=== PATIENT | female | born 1955 | race Caucasian/White ===

== ENCOUNTER → 2017-03-06 | Outpatient (CLI) | payer OTHER ==
[~2017-03-06] MED LIST: NOMEDS *
[2017-03-06 13:46] LABS: HEMOGLOBIN 15.6 g/dL (12.2-16.2); LYMPH # 2.6 K/mm3 (0.7-4.5); LYMPH % 30.6 % (10-50.0)
[2017-03-06 16:07] LABS: BUN 15 mg/dL (7-18); FREE THYROXIN INDEX 6.6 ug/dl (5.93-13.13)
[2017-03-06 16:14] LABS: GFR (ESTIMATED) 85 ML/MIN (59-)
== END ==
LOC: CARL-LAB 07:29
PROVIDERS: Nurse Practitioner Obstetrics & Gynecology
DX: N92.4 Excessive bleeding in the premenopausal period (principal); N95.0 Postmenopausal bleeding

== ENCOUNTER → 2017-03-25 | Outpatient (CLI) | payer OTHER ==
[~2017-03-25] MED LIST changes: +CARDIZEM CD240 MG PO; +DIGOX0.125 MG PO; +ELIQUIS5 MG PO; +FLOVENT HF0.22 MG/AC IH; +LEVOTHYROXINE0.05 MG PO; +XOPENEX HF0.045 MG/A IH
[2017-03-25 10:27] LABS: HEMOGLOBIN 15.9 g/dL (12.2-16.2); LYMPH # 2.7 K/mm3 (0.7-4.5); LYMPH % 25.6 % (10-50.0)
[2017-03-25 11:50] LABS: BUN 19 mg/dL (7-18)
[2017-03-25 11:52] LABS: GFR (ESTIMATED) 101 ML/MIN (59-)
== END ==
LOC: RT 09:56 → LAB 09:56
PROVIDERS: Nurse Practitioner Obstetrics & Gynecology
DX: N85.02 Endometrial intraepithelial neoplasia [EIN] (principal); N95.0 Postmenopausal bleeding; R10.2 Pelvic and perineal pain; Z01.818 Encounter for other preprocedural examination

== ENCOUNTER 2017-04-01 06:09 | Inpatient (IN) | payer OTHER ==
[~2017-04-01] VITALS: Ht 170.2 cm; Wt 121.6 kg
[2017-04-01] VITALS (43 sets, daily range): BP systolic 62–147; BP diastolic 31–77
[~2017-04-01 06:09] MED LIST changes: -CARDIZEM CD240 MG PO; -DIGOX0.125 MG PO; -ELIQUIS5 MG PO; -FLOVENT HF0.22 MG/AC IH; -LEVOTHYROXINE0.05 MG PO; -XOPENEX HF0.045 MG/A IH
--- NOTE | 2017-04-01 10:16 | Anesthesia Record ---
Anesthesia Record Part I Total IV fluids: 2400 EBL (ml): 300 Urine Output: 50 B/P: 158/77 % SaO2: 95 Pulse: 76 Resps: 16 Temp: 98.6 Patient is: Drowsy, Nasal O2, Stable Stable to PACU at: 1010 at 1016
--- NOTE | 2017-04-01 10:16 | Anesthesia Record ---
Anesthesia Record Part II Discharge time: 1040 Destination: Second Floor PACU nurse assessment review? Yes Patient is: Stable Anesthesia complications? No at 1016
--- NOTE | 2017-04-01 10:16 | Operative Note ---
Procedure/Operative Record Procedure Date of procedure: 04/01/17 Pre-Op Dx: Complex endometrial hyperplasia with atypia Post-Op Dx: Complex endometrial hyperplasia with atypia, extensive pelvic peritoneal adhesions Procedure performed: Laparoscopically assisted vaginal hysterectomy, RIGHT salpingo-oophorectomy, extensive lysis of pelvic and peritoneal adhesions. Surgeon: Dr. Benjamin Terry Registered Safety Engineer(s): Janice Nicholas Anesthesia: Brent Feeback EBL (ml): 300 Clinical note: She is a 61-year-old lady who had postmenopausal bleeding. An endometrial biopsy showed that she had complex endometrial hyperplasia with atypia. As result of that she was offered laparoscopic assisted vaginal hysterectomy and RIGHT salpingo-oophorectomy. We initially had scheduled her for a total abdominal hysterectomy butshe requested laparoscopic. The risks and benefits of surgery were discussed the patient prior to surgery. Operative findings: Upon entering the abdominal cavity she had extensive adhesions of the omentum to the anterior abdominal wall as well as omentum and bowel adherent to the uterus and deep pelvis. The sigmoid colon was adherent to the LEFT pelvic sidewall. She had a previous LEFT salpingo-oophorectomy and I suspect this is why she had so many adhesions. The RIGHT ovary and tube appeared normal although the RIGHT tube was completely adherent to the RIGHT pelvic sidewall. Operative note: She was taken to the operating room where general anesthesia was found be adequate. She was prepped and draped in the normal sterile fashion in the semi- lithotomy position. A weighted speculum was placed in the vagina and the anterior lip of the surgical grasped with a tenaculum. Dilated the cervix to approximately 4 mm and inserted a Jelly uterine manipulator into the uterine cavity. The balloon was insufflated. I changed gloves and then injected 10 mL of 0.5 percent ropivacaine around the umbilicus. I made a small incision within the umbilicus and inserted a Veress needle into the abdominal cavity. The abdominal cavity was then insufflated with carbon oxide gas to a pressure of 20 mmHg. I then inserted an 11 mm trocar under direct vision. There were extensive adhesions noted upon entering the abdominal cavity. I was able to inject through and through in the LEFT lower quadrant lateral to the inferior epigastric arteries. I then made a small skin incision and inserted an 11 mm trocar under direct vision. Using harmonic scalpel I was able to take some of the adhesions down enough to free up along the anterior abdominal wall so that I could put in a suprapubic port. I injected through and through the pubic hairline, made a small incision here and inserted a 5 mm trocar under direct vision. Using harmonic scalpel and graspers I was able to further take down adhesions. There were adhesions of omentum to the fundus of the uterus. There were adhesions of the sigmoid colon along the anterior abdominal wall and bladder flap. These were taken down with Harmonic scalpel. I took great care to avoid touching the bowel. It took me between half an hour and 45 minutes to take down all the adhesions in the anterior abdominal wall and deep pelvis. I then cut through the LEFT round ligament with Harmonic scalpel. I opened up the anterior aspect of the peritoneum and opened this up to the midline. I then took down the posterior aspect of the broad ligament to the level of the uterosacral ligament on the LEFT side. I skeletonized the uterine arteries and then applied hemoclips to the uterine arteries. Using Harmonic Scalpel adjacent to the cervix I cut through the uterine arteries on the LEFT side. I further freed up the bladder anteriorly. I then turned my attention to the RIGHT side. I took cut through the RIGHT round ligament with Harmonic scalpel. I opened up the anterior peritoneum to the midline joining up with the other side. Then cut through the uterine and ligament and tube with Harmonic scalpel. I then took down the posterior aspect of the broad ligament to the level of the uterosacral ligament on the RIGHT side. I skeletonized the uterine arteries on the RIGHT side and applied hemoclips across uterine arteries. I then took these down with Harmonic scalpel staying adjacent to the cervix. Using Harmonic Scalpel and both blunt and sharp dissection I took down the bladder anteriorly and freed up the bladder pillars bilaterally. The RIGHT was then grasped and using harmonic scalpel I was able to free up the ovary from the RIGHT pelvic sidewall. I took great care to avoid delving to deep into the pelvic sidewall and avoiding the ureter. After freeing up the ovary and tube on its infundibulopelvic ligament I then placed 2 Endoloops on the infundibula pelvic ligament. I then cut away the ovary and tube. I placed the ovary and tube in an Endo Catch bag that was placed through the LEFT lower quadrant port and then remove these through the LEFT lower quadrant port. After assuring hemostasis I then turned my attention to the vaginal portion the surgery. The patient was placed in the lithotomy position and a weighted speculum was placed in the vagina. The anterior and posterior lip of the cervix were grasped with Qureshi tenacula. I then injected approximately 20 cc of 1 percent Xylocaine with epinephrine circumferentially about the cervix. I then circumscribed the cervix with knife. I opened up into the posterior cul-de-sac using Alford scissors. A long weighted speculum was then placed through this defect. I then clamped cut suture-ligated and tagged the LEFT uterosacral ligament. This was followed by the LEFT cardinal ligament. I then clamped cut suture-ligated and tagged the RIGHT uterosacral ligament. This was followed by the RIGHT cardinal ligament. I then grasped the peritoneum and vaginal mucosa anteriorly and using sharp dissection dissected the bladder off from the anterior cervix. This completely freed up the uterus and it was removed through the vagina. A short weighted speculum placed in the vagina and the posterior vaginal mucosa was closed using running 2-0 Vicryl suture in a locked fashion. I then placed a Jean Baptiste suture using 0 PDS first through the posterior vagina and peritoneum, through the LEFT pararectal fascia and across the posterior peritoneum. I then passed tissue the RIGHT pararectal fascia and out through the peritoneum. This was LEFT to be tied at the end. I could not see the peritoneum anteriorly so elected to just close the vaginal mucosa using running 0 Vicryl suture in a locked fashion from LEFT to RIGHT from anterior to posterior. A Arroyo catheter was in place in the bladder. Clear urine was seen to flow. We then changed gloves and once again performed the laparoscopic portion of the surgery. After assuring hemostasis of then elected to place 4 pieces of Surgicel in the pelvis and along the peritoneum. The masses out of the abdomen and once again hemostasis was assured. The secondary trochars were then removed under direct vision. The sites were hemostatic. The primary trocar and camera removed together. No bowel seen to follow. The 11 mm trocar sites were closed deeply with 2-0 Vicryl suture. The 5 mm trocar site was closed with subcu care 4-0 Monocryl. The skin of the 11 mm trocar sites were closed with subcuticular running 4-0 Monocryl suture. The patient tolerated the procedure well and was taken to the recovery room in excellent condition. All sponge instrument and needle counts were correct. Estimate a blood loss was approximately 300 mL. Conplications: None Specimens: Uterus and RIGHT ovary and RIGHT tube. at 1016
--- NOTE | 2017-04-01 13:21 | PHARMACY CLINIC NOTE ---
Patient Demographics Patient Demographics Admission date: 04/01/17 Date: 04/01/17 Time: 1321 Allergies Coded Allergies: No Known Allergies (04/01/17) HEIGHT- FT: 5 IN: 7.00 K.482 VTE General Information Disclaimer The following section includes nursing documentation that has been pulled in for pharmacy review. Patient's VTE score: 3 Patient's VTE Risk: LOW RISK VTE prophylaxis NQF [id number] VTE prophylaxis ordered? Yes Type of prophylaxis/treatment: ICD, Lovenox at 1321
[2017-04-01 13:32] LABS: HEMOGLOBIN 12.2 g/dL (12.2-16.2)
--- NOTE | 2017-04-01 14:00 | ACUTE CARE PROGRESS NOTE (QUA) ---
Progress Notes Subjective Date 04/01/17 Time 1353 Note I was called to see the patient because she had a drop in her blood pressure. He was feeling unwell and her blood pressure was in the 60s over 40s. Her heart rate was 40. The nurses said that this came on all of a sudden. She had been doing very well post surgery. She had put out approximately 200 mL of urine since arriving on the floor. She is not actively bleeding. Patient/family reports: feeling better Objective Findings Last VS-Temp:97.9 B/P:126/76 Pulse:80 Resp:16 SaO2:96 Last weight lbs:259 oz:0 K.482 Method:Floor Scales Laboratory Tests 04/01/17 1328: POC Glucose 161 H 04/01/17 1320: Hgb 12.2, Hct 38.1 Exam General appearance: normal appearance, obese Eyes: normal exam Cardiovascular: normal exam, normal sinus rhythm Respiratory: aerating well ABD: normal exam, non-distended Skin: dry, cool, pale Reviewed: vital signs, lab results Assessment/Plan Patient condition Stable Plan: continue current care This inpt stay is expected to cross 2 MNs from start of care Yes Comments: Her hemoglobin is 12.2. It was 15.9 prior surgery. She has received fluids and she only lost about 300 -400 mL of blood during her surgery. She was somewhat oozy at the end of the surgery but was otherwise stable. Given the fact that her blood pressure was low and her heart rate was low I suspect she may have had a vagal reaction. She felt better upon receiving only 300 -400 mL of fluids. My concern was that she had active bleeding causing her low blood pressure. I would have suspected that her heart rate would have been elevated with the low blood pressure but it was not. She recovered quite quickly. Her hemoglobin is 12.2 and I would've suspected that it would have been considerably lower if she had active bleeding. We have typed and crossed her for 4 units of blood. We will repeat her H and H again in an hour. She is stable at this point in time. Her cardiogram was normal. There is no evidence of ischemia. She had sinus bradycardia with a heart rate of 59. At this point in time I don't think I need to take her back to the operating room but I will leave this option open if she has any further episodes of low blood pressure, decreased urine output or low blood counts. at 1400
[2017-04-01 14:42] LABS: HEMOGLOBIN 10.6 g/dL (12.2-16.2)
[2017-04-01 15:35] LABS: ABO BLOOD TYPE O; RH BLOOD TYPE POSITIVE
[2017-04-01 15:36] LABS: ANTIHUMAN GLOB CROSSMATCH COMPAT
[2017-04-01 15:37] LABS: ANTIHUMAN GLOB CROSSMATCH COMPAT
[2017-04-01 15:39] LABS: URINE BILIRUBIN - DIPSTICK NEGATIVE (NEG); URINE BLOOD 2+ (NEG)
--- NOTE | 2017-04-01 16:49 | Operative Note ---
Procedure/Operative Record Procedure Date of procedure: 04/01/17 Pre-Op Dx: Postoperative bleeding Post-Op Dx: Postoperative bleeding Procedure performed: Support her laparotomy with clips to the uterine artery on the LEFT side. Surgeon: Dr. Benjamin Terry Certified Scrum Master(s): Dr. Davis Anesthesia: Brent Gomez EBL (ml): 800 Clinical note: She is a 61-year-old lady who underwent a laparoscopic-assisted vaginal hysterectomy on the morning of April 01, 2017. She was doing very well postoperatively and then dropped her blood pressure. She received a minimal amount of IV fluids and the blood pressure recovered. However she dropped her blood pressures second time after fluid resuscitation and as result of that we elected to perform an exploratory laparotomy. Her hemoglobin was 12.2 postoperatively and an hour later was 10.6. Operative findings: On opening the abdominal cavity she had approximately 500 -600 mL of clots in the pelvis. We rinsed the pelvis well and on the left-hand side it was noted that there was a small amount of bleeding from the LEFT uterine artery. There were clips on the LEFT artery but the bleeding was more medial to the clips. It was just oozing. I was able to apply 2 clips to the medial end of the uterine artery and this completely stopped the bleeding. She lost approximately 200 mL of blood during the surgery itself. Operative note: She was taken to the operating room where general anesthesia was found be adequate. She was prepped and draped in normal sterile fashion in the supine position. A Arroyo catheter was in the bladder. A midline incision was made with knife and carried through to the underlying layer of fascia with cautery. The fascia was opened in the midline with cautery and extended superiorly and inferiorly with cautery. The rectus muscles were then in the midline and the peritoneum identified. It was tented up and entered sharply with Metzenbaum scissors. We then further opened this peritoneum superiorly and inferiorly with good visualization of the bladder inferiorly and the bowel underneath. We cleared all the clots and debris from the pelvis and then packed away the bowel with warm moist packs. A Bookwalter was used to provide traction. We then rinsed the pelvis well with warm saline and we identified a small bleeder on the LEFT side that was oozing from the LEFT uterine artery proximal to the clips that were on the distal end of the uterine artery. We once again rinsed the pelvis well and assure hemostasis. I then placed 3 large pieces of Gelfoam in the pelvis as well as 2 pieces of Surgicel. Once again hemostasis was assured. The Surgicel and Gelfoam were both dry. We then removed the Bookwalter retractor and close the peritoneum using running 2-0 Vicryl suture. The fascia was then closed using running #2 Novafil suture. The subcu sutures then irrigated with warm water and closed in 2 layers with running 2-0 Monocryl suture. The inferior and superior aspect of the incision were closed with mattress style 4-0 nylon suture. The skin was then closed with mariana. I then cleaned the skin with Hibiclens. Sterile dressings were applied. The patient tolerated the procedure well and was taken to the recovery room in excellent condition. All sponge instrument and needle counts were correct. Estimate a blood loss was approximately 800 mL that included the blood that was artery in the pelvis. Conplications: None Specimens: None at 3161
--- NOTE | 2017-04-01 17:02 | Anesthesia Record ---
Anesthesia Record Part II Discharge time: 1725 Destination: Second Floor PACU nurse assessment review? Yes Patient is: Stable Anesthesia complications? No at 1701
--- NOTE | 2017-04-01 17:02 | Anesthesia Record ---
Anesthesia Record Part I Total IV fluids: 2500 EBL (ml): 800 Urine Output: 500 Units of blood given: 2 Type of product: Packed RBCs B/P: 150/83 % SaO2: 97 Pulse: 82 Resps: 16 Temp: 97.8 Patient is: Drowsy, Nasal O2, Stable Stable to PACU at: 1655 at 1701
[2017-04-01 17:34] LABS: HEMOGLOBIN 12.5 g/dL (12.2-16.2)
[2017-04-02] VITALS (14 sets, daily range): BP systolic 105–143; BP diastolic 54–80
[2017-04-02 07:35] LABS: HEMOGLOBIN 11.1 g/dL (12.2-16.2)
[2017-04-02 07:36] LABS: LYMPH # 2.2 K/mm3 (0.7-4.5); LYMPH % 18.8 % (10-50.0)
--- NOTE | 2017-04-02 10:06 | ACUTE CARE PROGRESS NOTE (QUA) ---
Progress Notes Subjective Date 04/02/17 Time 1002 Note She is doing very well this morning. Her pain is well-controlled. She does complain of some mild shortness of breath. I suspect this is as a result of the amount of fluid she received yesterday. She is voiding well. She denies any chest pain or calf tenderness. Her belly pain is minimal. She is passing gas. She is eating. Patient/family reports: feeling better Objective Findings Last VS-Temp:98.8 B/P:115/65 Pulse:86 Resp:18 SaO2:95 OXYGEN Last weight lbs:259 oz:0 K.482 Method:Floor Scales Laboratory Tests 04/02/17 0625: Sodium 138, Potassium 4.4, Chloride 105, Carbon Dioxide 28, BUN 15, Creatinine 0.8, Estimated Creat Clear 133, Estimated GFR (MDRD) 72, Glucose 144 H, Calcium 7.3 L, WBC 11.6 H, RBC 3.72 L, Hgb 11.1 L, Hct 34.3 L, MCV 92.2, RDW 16.4, Plt Count 184, Gran % 76.0, Gran # 8.8 H, Lymphocytes % 18.8, Monocytes % 5.2, Lymphocytes # 2.2, Monocytes # 0.6, PUBS MCHC 32.4, MCH 29.8 04/01/17 1725: Hgb 12.5, Hct 40.7 04/01/17 1555: Misc Test Units BLOOD UNIT RELEASE 04/01/17 1534: Misc Test Units BLOOD UNIT RELEASE 04/01/17 1427: Hgb 10.6 L, Hct 33.4 L 04/01/17 1342: Antibody Screen NEGATIVE, Miscellaneous Test POSITIVE 04/01/17 1328: POC Glucose 161 H 04/01/17 1320: Hgb 12.2, Hct 38.1 Exam General appearance: normal appearance, alert, awake, no acute distress Eyes: normal exam ENT: normal exam Neck: normal inspection Cardiovascular: normal exam, normal sinus rhythm, regular rate & rhythm Respiratory: normal exam, aerating well, clear to auscultation, good air movement ABD: 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 Complex endometrial hyperplasia with atypia 2. Postoperative hemorrhage involving genitourinary system following non- genitourinary procedure Patient condition Improving, Stable Plan: continue current care This inpt stay is expected to cross 2 MNs from start of care Yes Comments: She is doing very well this morning. She is eating and drinking. She does complain of some mild shortness of breath that I suspect is as result of her excess fluid that she received prior to surgery and during surgery. She is making a normal amount of urine. I suspect that this will continue and she will feel much better after she diuresis. I will give her 20 mg IV of Lasix this morning. at 1008
[2017-04-03] VITALS (21 sets, daily range): BP systolic 102–160; BP diastolic 50–78
[2017-04-03 05:38] LABS: HEMOGLOBIN 10.6 g/dL (12.2-16.2)
--- NOTE | 2017-04-03 07:05 | ACUTE CARE PROGRESS NOTE (QUA) ---
Progress Notes Subjective Date 04/03/17 Time 0621 Note pt with inc hr with funny feeling in chest - she recently had surg and transfusion but no active bleeding now - she reports she has had these palpatations in past but no known workup - pt with initial ekg which showed a fib with non- specific st elevation 3 and f - pt seen and feeling better with no chest pain and repeat ekg showed a fib with rvr and no sig elevation- Patient/family reports: feeling better Nursing reports: shortness of breath Objective Findings Last VS-Temp:98.5 B/P:123/58 Pulse:95 Resp:19 SaO2:994 ROOM AIR Last weight lbs:259 oz:0 K.482 Method:Floor Scales Exam General appearance: alert, awake Eyes: PERRLA ENT: dry mucous membranes Neck: no JVD Cardiovascular: irregularly irregular, murmur Respiratory: clear to auscultation, no respiratory distress ABD: soft Genitourinary: no hematuria Extremities: moves all, no calf tenderness Musculoskeletal: equal muscle strength Skin: dry Neuro: alert, photo optics technician II-XII nml as tested Reviewed: allergies, medications, vital signs, lab results, EKG personally reviewed Assessment/Plan Problem List 1. Complex endometrial hyperplasia with atypia 2. Postoperative hemorrhage involving genitourinary system following non- genitourinary procedure 3. Atrial fibrillation with rapid ventricular response Patient condition Stable Plan: order additional tests This inpt stay is expected to cross 2 MNs from start of care Yes Comments: pt is stable and will have ct for pul emboli as her wells score is elevated and will give theurapeutic dose of lovenox at this time and start cardizem and place on monitor -tele - dr cadena and dr arredondo notified and dr traore notified at 0704
--- NOTE | 2017-04-03 08:16 | ACUTE CARE PROGRESS NOTE (QUA) ---
Progress Notes Subjective Date 04/03/17 Time 0812 Note She was doing well overnight. She says that she took some of her inhaler this morning and when she stood up she started feeling really short of breath and dizzy. She had an electrocardiogram that was suggestive of pulmonary embolus. She had a CT of the chest was negative for pulmonary embolus. It was felt however that she did have atrial fibrillation. She's been started on a Cardizem drip and has been seen in consultation by Dr. Cuevas. She was also seen by Dr. Turpin. We have a consult and for Dr. Olivares as well. Laboratory Tests 04/03/17 0729: Creatine Kinase 601 H, CK-MB (CK-2) Rel Index 0.2, CK and CKMB Interp 1.2, Troponin I 0.02 04/03/17 0630: TSH 1.24, Thyroxine (T4) 10.1 04/03/17 0530: Creatine Kinase 559 H, CK-MB (CK-2) Rel Index 0.2, CK and CKMB Interp 1.2, Troponin I < 0.02 04/03/17 0530: Sodium 139, Potassium 3.6, Chloride 107, Carbon Dioxide 28, BUN 9, Creatinine 0.6, Estimated Creat Clear 178, Estimated GFR (MDRD) 101, Glucose 129 H, Calcium 7.7 L, Total Bilirubin 0.5, AST 33, ALT 47, Alkaline Phosphatase 43 L, Total Protein 6.1 L, Albumin 2.6 L, Globulin 3.5 H, Albumin/Globulin Ratio 0.7 L, D-Dimer 2640 *H, Hgb 10.6 L, Hct 32.9 L Patient/family reports: feeling better Objective Findings Last VS-Temp:98.5 B/P:123/58 Pulse:95 Resp:19 SaO2:994 ROOM AIR Last weight lbs:259 oz:0 K.482 Method:Floor Scales Exam General appearance: normal appearance, alert, awake, no acute distress Eyes: normal exam ENT: mucous membranes moist Neck: normal inspection Cardiovascular: normal exam, tachycardia Respiratory: normal exam, aerating well, clear to auscultation, good air movement, normal breath sounds ABD: normal exam, non-distended, normal bowel sounds (INCISION CLEAN AND DRY) Genitourinary: normal voiding & quantity Extremities: normal exam, no pedal edema Musculoskeletal: normal exam Skin: normal exam, normal color Assessment/Plan Problem List 1. Complex endometrial hyperplasia with atypia 2. Postoperative hemorrhage involving genitourinary system following non- genitourinary procedure 3. Atrial fibrillation with rapid ventricular response Patient condition Stable Plan: continue current care, consult information and data architect analyst This inpt stay is expected to cross 2 MNs from start of care Yes Comments: She seems to be doing better. We will start her on the diltiazem as per Dr. Cuevas's orders. We will have her see Dr. Olivares this morning. She would like to have a Dulcolax suppository to make her bowels moved. She is otherwise doing well. at 0816
--- NOTE | 2017-04-03 09:40 | RADIOLOGY REPORT PS360 ---
CTA-CHEST HISTORY: Shortness of air, recent surgery SOA ORDERING PHYSICIAN: Benjamin Terry MD PATIENT AGE: 61 years TECHNIQUE: Helical acquisition obtained following the bolus administration of 60 mL of Isovue 370 followed by a saline bolus. Axial, sagittal, and coronal reformatted images are generated and reviewed. COMPARISON: None FINDINGS: There is no evidence of central pulmonary embolus. The peripheral pulmonary arteries are not well opacified. Normal heart size. No evidence of aortic aneurysm. No mediastinal or hilar mass. There is moderate bilateral lower lobe consolidation/volume loss with patchy peripheral areas of atelectasis in the left upper lobe and left lower lobe. There are small bilateral pleural effusions. Upper abdominal images show cholelithiasis. There is a pneumoperitoneum likely related to recent abdominal surgery. There is a 4 cm lobular opacity medial to the inferior aspect of the right lobe of liver. This is of questionable clinical significance and etiology and may be better evaluated with dedicated CT abdomen without contrast.. Small amount fluid is present in the right paracolic gutter. IMPRESSION: 1. No evidence of acute pulmonary embolus or aortic aneurysm. 2. Moderate lateral lower lobe consolidation/volume loss with scattered subsegmental atelectasis or infiltrate in the upper lobes and superior segment left lower lobe. Small bilateral effusions. 3. Unusual opacity medial to the inferior aspect of the right hepatic lobe. Possibly related to unopacified bowel, mass, or blood. Further evaluation may be obtained CT abdomen with IV and oral contrast if clinically warranted. 4. Pneumoperitoneum is present likely related to recent abdominal surgery 5. Cholelithiasis
--- NOTE | 2017-04-03 13:19 | RADIOLOGY REPORT PS360 ---
PROCEDURE: 2-D M-mode and color Doppler study INDICATIONS FOR THE TEST: Chest pain COPDX Heart Murmur Tobacco SmokingEX Palpitations Fatigue Syncope Edema Hypertension Diabetes Mellitus Rheumatic Fever SOB JONAS ObesityXHyperlipidemia Family History HD Additional History AF WITH RVR PATIENT INFORMATION HEIGHT: 67 WEIGHT:259 GENDER: Female B/P:123/58 2-D/M-MODE INTERPRETATION: 2-D MEASUREMENTS OBSERVED VALUES IN CMS Right Ventricular Dimension (RVDd) 1.5 Interventricular Septum (Thickness)(IVsd) 1.5 Left Ventricular Internal Dimensions(LVIDd) 4.3 Left Ventricular Posterior Wall (Thickness)(LVPWd) 1.0 Aortic Root 3.1 Aortic Cusp Separation 1.2 Left Atrial Dimensions (LAD) 3.3 2D 1. Left atrium is qualitatively mildly enlarged, left ventricle is normal size, there is mild concentric left ventricular hypertrophy, visually estimated ejection fraction of 55-60% with no obvious regional wall motion abnormality, endocardial surfaces are somewhat poorly visualized. 2. The right atrium is normal size, right ventricle is mildly enlarged with normal contractility. 3. The aortic valve is minimally thickened and calcified, leaflet continue to display mobility. 4. The mitral valve leaflets are minimally thickened and calcified. 5. The tricuspid valve is minimally thickened. 6. The pulmonic valve is poorly visualized. 7. No significant pericardial effusion noted. DOPPLER INTERROGATION: Doppler interrogation of the aortic mitral and tricuspid valvular presence of mild mitral and tricuspid regurgitation, tricuspid regurgitant jet velocity is insufficient for calculation of the right ventricular systolic pressure. CONCLUSION: 1. Technically difficult study because of the patient's factor and poor acoustic windows 2. Mildly enlarged left atrium, normal left ventricular size, mild qualitative concentric left ventricular hypertrophy, visually estimated ejection fraction 55-60% with no obvious regional wall motion abnormality, endocardial surfaces are poorly visualized. 3. Mildly enlarged right ventricle with normal contractility. 4. Thickened and calcified aortic valve without any significant aortic stenosis or aortic insufficiency. 5. Mild mitral and tricuspid regurgitation. 6. No significant pericardial effusion noted.
[2017-04-04] VITALS (14 sets, daily range): BP systolic 101–147; BP diastolic 54–80
--- NOTE | 2017-04-04 08:32 | CONSULT NOTE ---
See Addendum Standard Demographics Patient Demo Date of Consultation: 04/03/17 Referring Provider: Benjamin Terry MD Reason for Consultation: atrial fibrillation PRIMARY DIAGNOSIS: SAME-PELVIC PAIN Allergies: Coded Allergies: No Known Drug Allergies (-- 04/01/17) History of present illness: History of present illness: 61-year-old white female with long history of poorly controlled asthma who underwent total abdominal hysterectomy 4 days ago, complicated by return to the operating room because of bleeding. She had been doing well, but early the morning of the had rapid heart rate, some chest pressure and shortness of air. She reported that began the night before when she took a couple puffs of her Symbicort inhaler. Electrocardiogram showed rapid atrial fibrillation, some ST/T-wave segments, cross covering doctor ordered d-dimer and troponin levels, showing highly positive d-dimer levels and normal troponins. Patient was subjected to CT scan with PE protocol which is negative. We've transferred her to the floor and Cardizem drip has been started. Past medical history: Family HX Diabetes No CAD Yes Hypertension Yes Hyperlipidemia No Cancer No TB No Immunization HX DT/Tetanus Unknown Flu Refused Pneumonia Never Had TB Test in last year No General Angina: No SC: No Hypertension? No Hyperlipidemia? No CHF? No COPD? Yes Asthma? Yes Hernia? No CVA? No Seizures? No Diabetes? No UTI? No Stones? No GB Disease: No Hepatitis? No Cataracts? No Glaucoma? No MRSA? No TB? No Cancer? No Past Surgical HX Previous Surgery?Y FB REMOVAL FROM ESPOHAGUS L OVARY REMOVED RIGHT HIP REPLACE Jun Current home meds: Reported Medications No Known Home Medications Social Hx: Pt is a non-smoker Patient uses alcohol never Patien't marital status is single Patient's support system is excellent Pt uses illicit drugs? No Exam: Admission vital signs: 1ST Vital Signs Result Date Time B/P 128/72 04/01 0706 Temp 98.6 04/01 0706 Pulse 68 04/01 0706 Resp 18 04/01 0706 Pulse Ox 96 04/01 0709 O2 Delivery OXYGEN 04/01 1010 O2 Flow Rate 2 04/01 1100 Additional information: I examined her in the second floor intensive care unit around 8 AM. She had improved in regards to heart rate. Remained in atrial fibrillation. Her breathing was tight with minimal tachypnea. She was alert, oriented 3, normal blood pressure. Abdomen soft, surgical scar is tender, otherwise soft abdomen, no edema or clubbing. Plan: Problem List 1. Complex endometrial hyperplasia with atypia 2. Postoperative hemorrhage involving genitourinary system following non- genitourinary procedure 3. Atrial fibrillation with rapid ventricular response 4. Asthma Plan: Atrial fibrillation, probable paroxysmal. Patient shares with me that she's had palpitations in the past at home. Possibly exacerbated by beta agonist. We will change her breathing treatments to Xopenex, start Solu-Medrol and antibiotics. Cardizem drip was started controlled rate. We will continue and switch to by mouth Cardizem if sinus rhythm conversion occurs. Echocardiogram ordered. at 0832
--- NOTE | 2017-04-04 08:37 | ACUTE CARE PROGRESS NOTE (QUA) ---
See Addendum Progress Notes Subjective Date 04/04/17 Time 0833 Note Internal medicine consult follow-up note: Patient overall feels much better. No complaints. type copy examiner recorded one episode of atrial fibrillation last night but patient was unaware of this. Rate was much better controlled. Lung exam is much improved, better air entry. No expiratory wheezing. No stridor. Good air movement. Heart rate regular. Normal sinus rhythm on monitor this morning. No edema. Patient wants to go home. Objective Findings Last VS-Temp:98.3 B/P:127/73 Pulse:76 Resp:22 SaO2:91 ROOM AIR Last weight lbs:264 oz:1 K.777 Method:Bed Scales Assessment/Plan Problem List 1. Complex endometrial hyperplasia with atypia 2. Postoperative hemorrhage involving genitourinary system following non- genitourinary procedure 3. Atrial fibrillation with rapid ventricular response 4. Asthma Patient condition Improving Plan: continue current care, Dial back steroid dose. Continue Xopenex instead of standard beta agonist for bronchodilation given her atrial fibrillation. Slightly increased dose of Cardizem. Echocardiogram showed reassuring results vis--vis atrial size and function of ventricular system. Patient does need to be on long-term anticoagulation given the history of paroxysmal atrial fibrillation. When she is discharged she will need to be discharged on a 30 day event recorder. I will provide her with samples of Eliquis 5 mg twice a day from my office in preparation for discharge. This inpt stay is expected to cross 2 MNs from start of care Yes at 0837
--- NOTE | 2017-04-04 08:54 | ACUTE CARE PROGRESS NOTE (QUA) ---
Progress Notes Subjective Date 04/04/17 Time [address] Platt has been noted. Surgically the patient has done well. Her wounds are clean. Abdomen soft. She is passing flatus. She is been eating and ambulating. He feels that she needs to be observed for another 24 hours before discharge, and has been discussed with the patient. Hemoglobin is 10.6 g. Impression: Stable (from a surgical point of view). Assessment/Plan Problem List 1. Complex endometrial hyperplasia with atypia 2. Postoperative hemorrhage involving genitourinary system following non- genitourinary procedure 3. Atrial fibrillation with rapid ventricular response 4. Asthma This inpt stay is expected to cross 2 MNs from start of care Yes at 0886
[2017-04-04] MEDS ORDERED: LEVOTHYROXINE0.05 MG PO (11:27)
[2017-04-05] VITALS (15 sets, daily range): BP systolic 121–187; BP diastolic 62–96
--- NOTE | 2017-04-05 09:10 | ACUTE CARE PROGRESS NOTE (QUA) ---
Progress Notes Subjective Date 04/05/17 Time 0907 Note The patient is afebrile. Her vital signs are stable, except that she reverted to HO fibrillation within the past hour and is extremely anxious this morning. His concerned about her heart, about her final path report, and about her past gynecologic history. I've had a long discussion with her. She will not be discharged today and Dr. Platt will be in to see her later this morning. I've given her 5 mg of Valium by mouth an effort to relax her some until the time. Dr. Terry returns tomorrow. Assessment/Plan Problem List 1. Complex endometrial hyperplasia with atypia 2. Postoperative hemorrhage involving genitourinary system following non- genitourinary procedure 3. Atrial fibrillation with rapid ventricular response 4. Asthma This inpt stay is expected to cross 2 MNs from start of care Yes at 0909
[2017-04-06] VITALS (9 sets, daily range): BP systolic 129–186; BP diastolic 62–95
[2017-04-06] MEDS ORDERED: ELIQUIS5 MG PO (08:13)
[2017-04-06] MEDS ORDERED: DIGOX0.125 MG PO (08:13)
[2017-04-06] MEDS ORDERED: CARDIZEM CD240 MG PO (08:14)
[2017-04-06] MEDS ORDERED: XOPENEX HF0.045 MG/A IH (08:15)
[2017-04-06] MEDS ORDERED: FLOVENT HF0.22 MG/AC IH (08:23)
--- NOTE | 2017-04-06 08:23 | ACUTE CARE PROGRESS NOTE (QUA) ---
Progress Notes Subjective Date 04/06/17 Time 0816 Note Patient feels much better today, has been in sinus rhythm. Heart rate regular. Blood pressure good. Patient is alert and pleasant and without edema. Assessment/Plan Problem List 1. Complex endometrial hyperplasia with atypia 2. Postoperative hemorrhage involving genitourinary system following non- genitourinary procedure 3. Atrial fibrillation with rapid ventricular response 4. Asthma Patient condition Improving Plan: continue current care, patient improving. Agree with discharge home today with digoxin, diltiazem and Xopenex and Flovent instead of long-acting beta agonist for asthma. Close follow-up in my office. EP referral at that point. This inpt stay is expected to cross 2 MNs from start of care Yes at 0838
--- NOTE | 2017-04-06 09:54 | ACUTE CARE PROGRESS NOTE (QUA) ---
Progress Notes Subjective Date 04/06/17 Time 0953 Note She is doing well this morning. She has minimal pain. Her mood is much better. She is much less anxious today. She had an episode of tachycardia yesterday consistent with atrial fibrillation. Patient/family reports: feeling better, no complaints Objective Findings Last VS-Temp:98.1 B/P:135/75 Pulse:87 Resp:20 SaO2:94 ROOM AIR Last weight lbs:268 oz:1 K.591 Method:Bed Scales Exam General appearance: normal appearance, alert, awake, no acute distress Reviewed: vital signs, lab results Assessment/Plan Problem List 1. Complex endometrial hyperplasia with atypia 2. Postoperative hemorrhage involving genitourinary system following non- genitourinary procedure 3. Atrial fibrillation with rapid ventricular response 4. Asthma Patient condition Improving, Stable Plan: continue current care, initiate discharge plan This inpt stay is expected to cross 2 MNs from start of care Yes Comments: She is doing much better this morning. Her atrial fibrillation has settled. She will be sent home today. at 0964
--- NOTE | 2017-04-06 10:00 | Discharge Summary ---
Discharge Summary Admission date: 04/01/17 Discharge date: 04/06/17 Discharge diagnoses: Complex endometrial hyperplasia, postoperative hemorrhage with reoperation, atrial fibrillation Clinical note: She is a 61-year-old lady who had an endometrial biopsy that showed complex hyperplasia with atypia. As result of that she was offered hysterectomy. Course in hospital: On April 01, 2017 she underwent a laparoscopically assisted vaginal hysterectomy and bilateral salpingectomy. A few hours after surgery she had low blood pressure which was resolved with fluids but she had a further episode of a drop in her blood pressure and as result of that we elected to take her back to the operating room for suspected postoperative bleeding. She had a laparotomy and at the time of surgery was noted that there was a small amount of bleeding from the LEFT uterine artery proximal to the clips on the artery. There was a slight tear in the edge in the artery and I was able to put clips on this artery. Separately she was doing well postoperatively and has remained afebrile. She had an episode of shortness of breath on her second postoperative day in the middle of the night. She was worked up for pulmonary embolus but it turned out that she had asthma causing her shortness of breath and acute atrial fibrillation. She was transferred to the stepdown bed and she was seen in consultation by Dr. Cuevas. She started on Cardizem and monitored over the next few days. She was maintained to go home yesterday but had another episode of atrophic ablation. As result that she is Her 1 extra day. She is now doing much better. We will plan to send her home today. She is taking minimal pain medicine. She will take Tylenol 3 at home. She will take an anti-inflammatory. She would be monitored over the next 30 days with a portable monitor. She may be a candidate for digoxin as well. New paraLaboratory Tests 04/01/17 0925: Urine Color YELLOW, Urine Appearance CLEAR, Urine pH 6.5, Ur Specific [place] 1.020, Urine Protein 1+, Urine Ketones NEGATIVE, Urine Blood 2+, Urine Nitrate NEGATIVE, Urine Bilirubin NEGATIVE, Urine Urobilinogen 0.2, Ur Leukocyte Esterase NEGATIVE, Urine RBC 20-50, Urine WBC 10-20, Ur Squamous Epith Cells 10- 20, Urine Bacteria 3+, Hyaline Casts 10-20, Urine Glucose NEGATIVE 04/01/17 1328: POC Glucose 161 04/01/17 1342: Antibody Screen NEGATIVE, Miscellaneous Test POSITIVE 04/01/17 1555: Misc Test Units BLOOD UNIT RELEASE 04/02/17 0625: WBC 11.6, RBC 3.72, MCV 92.2, RDW 16.4, Plt Count 184, Gran % 76.0, Gran # 8.8, Lymphocytes % 18.8, Monocytes % 5.2, Lymphocytes # 2.2, Monocytes # 0.6, PUBS MCHC 32.4, MCH 29.8 04/03/17 0530: Sodium 139, Potassium 3.6, Chloride 107, Carbon Dioxide 28, BUN 9, Creatinine 0.6, Estimated Creat Clear 178, Estimated GFR (MDRD) 101, Glucose 129, Calcium 7.7, Total Bilirubin 0.5, AST 33, ALT 47, Alkaline Phosphatase 43, Total Protein 6.1, Albumin 2.6, Globulin 3.5, Albumin/Globulin Ratio 0.7, D-Dimer 2640, Hgb 10.6, Hct 32.9 04/03/17 0630: TSH 1.24, Thyroxine (T4) 10.1 04/03/17 0729: Creatine Kinase 601, CK-MB (CK-2) Rel Index 0.2, CK and CKMB Interp 1.2, Troponin I 0.02 Plans for ongoing care: She is discharged home to follow-up with me in approximately a weeks' time. We will remove her mariana at that time. She is going home with mariana and a dry dressing. She will follow-up with Dr. Cuevas as necessary. Discharge medications She will continue with her home medications. She will continue with Cardize. She was given a prescription for pain medicine. DC/follow-up instructions She was given the usual instructions with respect to limiting her activity, driving and sexual activity. Condition at discharge Stable and improved at 1000
[2017-04-17] MEDS ORDERED: DIGOX0.125 MG PO (07:44)
[2017-04-21] MEDS ORDERED: PROTONIX40 MG PO (07:24)
[2017-04-21] MEDS ORDERED: CARAFATE 1GM TAB1 GM PO (07:25)
== END 2017-04-06 12:55 | disposition home or self-care (01) | DRG 742 ==
LOC: SDC 06:09 → OB 06:15 → SDC 07:30 → OB 11:00 → 2ND 15:01 → OB 15:01 → 2ND 04-03 06:42
PROVIDERS: Nurse Practitioner Obstetrics & Gynecology; Obstetrics & Gynecology
PROC: 0W3J0ZZ Control Bleeding in Pelvic Cavity, Open Approach (ICD-10-PCS; 2017-04-01)
PROC: 0UT9FZL Resection of Uterus, Supracervical, Via Natural or Artificial Opening With Percutaneous Endoscopic Assistance (ICD-10-PCS; principal; 2017-04-01 07:30)
PROC: 0UT0FZZ Resection of Right Ovary, Via Natural or Artificial Opening With Percutaneous Endoscopic Assistance (ICD-10-PCS; principal; 2017-04-01 07:30)
PROC: 0DNW4ZZ Release Peritoneum, Percutaneous Endoscopic Approach (ICD-10-PCS; principal; 2017-04-01 07:30)
PROC: 0UT5FZZ Resection of Right Fallopian Tube, Via Natural or Artificial Opening With Percutaneous Endoscopic Assistance (ICD-10-PCS; principal; 2017-04-01 07:30)
DX: N85.02 Endometrial intraepithelial neoplasia [EIN] (principal); I97.620 Postprocedural hemorrhage of a circulatory system organ or structure following other procedure; I48.91 Unspecified atrial fibrillation; N99.4 Postprocedural pelvic peritoneal adhesions; N73.6 Female pelvic peritoneal adhesions (postinfective); J45.998 Other asthma
CPT/HCPCS: J0131; J2405; J2710; P9016; Q2038; Q9967

== ENCOUNTER 2017-04-06 19:55 | Inpatient (IN) | payer OTHER ==
[~2017-04-06] VITALS: Ht 170.2 cm; Wt 115.3 kg
[~2017-04-06 19:55] MED LIST changes: +CARDIZEM CD240 MG PO; +DIGOX0.125 MG PO; +ELIQUIS5 MG PO; +FLOVENT HF0.22 MG/AC IH; +LEVOTHYROXINE0.05 MG PO; +XOPENEX HF0.045 MG/A IH
[2017-04-06 19:57] VITALS: BP 122/73
--- NOTE | 2017-04-06 20:08 | Emergency Room Report ---
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 Onset of symptoms date/time:04/06/1708/22/1299 or onset unknown for: Treatment Prior to Arrival: [facility] [employer] [employer] Provided by: Sepsis Risk Assessment: Temp: 98.6 B/P: 122/73 MAP: 89 Pulse: 161 Resp: 20 Recent fever? N Clinical Suspician of Infection? N Mental Status: 1 - Regular (Normal Baseline) Sepsis Risk:Possible Sepsis Risk Have you (or family members/close friends) recently traveled outside the [place]? N If Yes, where/when: Have you had exposure to infectious disease within the past month? N TB? Other? 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- was doing better but has lower gas feeling and no vomiting and also has inc hr which started this afternoon - no chest pain - Cardiac Chest Pain Chest pain indicative of cardiac No Timing/Duration this evening Severity moderate ALLERGIES Coded Allergies: No Known Drug Allergies (-- 04/01/17) Home Medications Active Scripts Apixaban (Eliquis) 5 MG PO BID #60 TAB Ref 2 Prov: 04/06/17 Digoxin (Digox) 0.125 MG PO DAILY-DM #30 TAB Ref 2 Prov: 04/06/17 DILTIAZEM HCL (Diltiazem 24HR Cd) 240 MG PO DAILY #30 C24 Ref 3 Prov: 04/06/17 Levalbuterol Tartrate (Xopenex HFA INH) 1-2 PUFF IH Q6HP PRN WHEEZING #1 INH Ref 3 Prov: 04/06/17 FLUTICASONE PROP (Flovent Hfa 220MCG) 2 PUFF IH BID #1 INH Ref 2 Prov: 04/06/17 Reported Medications Levothyroxine Sodium (Levothyroxine) 0.05 MG NG DAILY History Medical History General Angina: No PA: No Hypertension? No Hyperlipidemia? No CHF? No COPD? Yes Asthma? Yes Hernia? No CVA? No Seizures? No Diabetes? No UTI? No Stones? No GB Disease: No Hepatitis? No Cataracts? No Glaucoma? No MRSA? No TB? No Cancer? No Immunization Hx DT/Tetanus > 10 YRS Flu 04/06/17 Pneumonia Refuses Surgical Hx Previous Surgery?Y FB REMOVAL FROM ESPOHAGUS L OVARY REMOVED Family History Family Hx Diabetes No CAD Yes Hypertension Yes Hyperlipidemia Yes Cancer No TB No Social History Smoking Hx Smoker: Former Smoker Tobacco: No Type Cigarettes Are you/the child exposed to second-hand smoke: No Alcohol Alcohol: No Drugs none Review of Systems All Other Systems Reviewed and Negative Constitutional see HPI, denies fever, weakness Eyes denies drainage ENT denies: ear pain, epistaxis, throat pain. Respiratory see HPI, denies cough, shortness of breath, denies wheezing Cardiovascular see HPI, denies chest pain, palpitations, denies syncope Gastrointestinal see HPI, abdominal pain, denies nausea, denies vomiting Genitourinary denies: dysuria, frequency, hesitancy, hematuria. Musculoskeletal denies back pain, denies joint pain, denies joint swelling, denies neck pain Skin denies rash Psychiatric/Neurological denies headache, denies seizure Physical Exam Vital Signs Vital Signs Date Time Temp Pulse Resp B/P Pulse O2 O2 Flow FiO2 Ox Delivery Rate 04/06 2239 19 04/06 2224 139 20 137/91 96 2 04/06 2133 101 20 126/82 95 2 04/06 1957 98.6 161 20 122/73 96 2 - WBC >12,000 or <4,000 or 10% bands? 2 or more SIRS Criteria Met? B/P:122/73 MAP:89 Creatinine >2.0? UA output<0.5ml/kg/hr for 2 hrs? Platelet count >100,000? Lactate >2.0mmol/1? INR >1.2 or PTT > than 60 sec? Evidence of Organ Dysfunction? Provider documented clinical suspician of infection? N Sepsis Criteria Count: 2 Sepsis Risk: Possible Sepsis Risk General Appearance no apparent distress Eye Exam - bilateral eye PERRL, bilateral eye EOMI Ear, Nose, Throat normal ENT inspection Neck supple Respiratory Status No: respiratory distress. Lung Sounds bilateral: decreased breath sounds. 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 No Results/Orders Laboratory Tests 04/06/172009: Sodium 146 H, Potassium 3.6, Chloride 107, Carbon Dioxide 27, BUN 22 H, Creatinine 0.7, Estimated Creat Clear 153, Estimated GFR (MDRD) 85, Glucose 156 H, Calcium 8.1 L, Total Bilirubin 0.9, AST 54 H, ALT 75, Alkaline Phosphatase 55, Creatine Kinase 246 H, CK-MB (CK-2) Rel Index 1.5, CK and CKMB Interp 3.8 H, Troponin I 0.03, Total Protein 6.9, Albumin 3.0 L, Globulin 3.9 H, Albumin/ Globulin Ratio 0.8 L, WBC 21.6 *H, RBC 3.93 L, Hgb 12.0 L, Hct 36.5 L, MCV 92.9, RDW 15.1, Plt Count 302, Gran % 74.2, Gran # 16.0 H, Total Counted 100, Lymphocytes % 21.1, Monocytes % 4.7, Neutrophils 83 H, Lymphocytes (Manual) 14, Lymphocytes # 4.6 H, Monocytes (Manual) 3, Monocytes # 1.0, Platelet Estimate NORMAL, Hypochromasia 1+, Anisocytosis 1+, PUBS MCHC 32.9, MCH 30.5, Digoxin 0.11 L Current Medication Orders Sig/Cha Start time Last Medication Dose Route Stop Time Status Admin Bisacodyl 0 .STK-MED ONE 04/06 2236 DC CA Promethazine HCl 0 .STK-MED ONE 04/06 2236 DC .ROUTE Ketorolac 0 .STK-MED ONE 04/06 2235 DC Tromethamine .ROUTE Sodium Chloride 25 ML .STK-MED ONE 04/06 2235 DC IV Digoxin 0 .STK-MED ONE 04/06 2234 DC .ROUTE Bisacodyl 10 MG ONCE ONE 04/06 2230 DC 04/06 CA 04/06 Digoxin 0.125 MG ONCE ONE 04/06 2230 DC 04/06 IV 10/02 2231 2240 Ketorolac 30 MG ONCE ONE 04/06 2230 DC 04/06 Tromethamine IV 04/06 2231 223 Promethazine HCl 12.5 MG ONCE ONE 04/06 2230 DC 04/06 IV 04/06 223 2237 Sodium Chloride 25 ML ONCE ONE 04/06 2230 DC 04/06 IV 04/06 2244 2238 Sodium Chloride 100 ML .STK-MED ONE 04/06 2048 DC IV Diltiazem HCl 0 .STK-MED ONE 04/06 2047 DC IV Diltiazem HCl 0 .STK-MED ONE 04/06 204 DC IV Diltiazem HCl 10 MG ONCE ONE 04/06 2045 DC 04/06 IV 04/06 2046 205 Diltiazem HCl 100 MG ONCE ONE 04/06 2045 AC 04/06 Sodium Chloride 100 ML IV 04/07 0644 205 Sodium Chloride 10 ML PRN PRN 04/06 2015 AC IV 04/07 2003 Orders Procedure Date/time Status Decision to admit 04/06 2241 Active DIGOXIN 04/06 2030 Complete DIFFERENTIAL-WBC 04/06 2010 Complete ELECTROCARDIOGRAM REQUEST 04/06 2003 Active CHEST-PORTABLE 04/06 2003 Active IV SALINE LOCK 04/06 2003 Active CBC WITH AUTO DIFF 04/06 2003 Complete CARDIAC ENZYMES 04/06 2003 Complete CHEM 12 PROFILE 04/06 2003 Complete 12 LEAD EKG-JAYSON (INITIAL) 04/06 194 Active CM/EKG CM/stock order lister Rhythm Atrial Fibrillation EKG compared w/(date of old), non-spec. ST/Twave chgs XRAY/CT/US XRAY/CT/US XRAY chest XR interpretation by reviewed by me Xray Results normal/NAD (possible change lt base) Departure Departure Time of Disposition 2236 Disposition Still a Patient Clinical Impression Primary Impression: Atrial fibrillation with rapid ventricular response Secondary Impressions: Leukocytosis Qualifiers: Leukocytosis type: bandemia Qualified Code: D72.825 - Bandemia Condition STABLE Referrals Juan J Platt MD (Family) discussed with dr castillo and dr hjonatan NESS Critical Care Critical Care No at 2325
--- NOTE | 2017-04-06 20:08 | Emergency Room Report ---
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 Onset of symptoms date/time:04/06/1708/22/1299 or onset unknown for: Treatment Prior to Arrival: [facility] Provided by: Sepsis Risk Assessment: Temp: 98.6 B/P: 122/73 MAP: 89 Pulse: 161 Resp: 20 Recent fever? N Clinical Suspician of Infection? N Mental Status: 1 - Regular (Normal Baseline) Sepsis Risk:Possible Sepsis Risk Have you (or family members/close friends) recently traveled outside the [place]? N If Yes, where/when: Have you had exposure to infectious disease within the past month? N TB? Other? Specify: Source patient, RN notes reviewed, EMS, old records Exam Limitations no limitations Comment pt with recent hospital d/c sec to recent obgyn hospitalist physician surg and a fib- was doing better but has lower gas feeling and no vomiting and also has inc hr which started this afternoon - no chest pain - Cardiac Chest Pain Chest pain indicative of cardiac No Timing/Duration this evening Severity moderate ALLERGIES Coded Allergies: No Known Drug Allergies (-- 04/01/17) Home Medications Active Scripts Apixaban (Eliquis) 5 MG PO BID #60 TAB Ref 2 Prov: 04/06/17 Digoxin (Digox) 0.125 MG PO DAILY-DM #30 TAB Ref 2 Prov: 04/06/17 DILTIAZEM HCL (Diltiazem 24HR Cd) 240 MG PO DAILY #30 C24 Ref 3 Prov: 04/06/17 Levalbuterol Tartrate (Xopenex HFA INH) 1-2 PUFF IH Q6HP PRN WHEEZING #1 INH Ref 3 Prov: 04/06/17 FLUTICASONE PROP (Flovent Hfa 220MCG) 2 PUFF IH BID #1 INH Ref 2 Prov: 04/06/17 Reported Medications Levothyroxine Sodium (Levothyroxine) 0.05 MG NG DAILY History Medical History General Angina: No [place]: No Hypertension? No Hyperlipidemia? No CHF? No COPD? Yes Asthma? Yes Hernia? No CVA? No Seizures? No Diabetes? No UTI? No Stones? No GB Disease: No Hepatitis? No Cataracts? No Glaucoma? No MRSA? No TB? No Cancer? No Immunization Hx DT/Tetanus > 10 YRS Flu 04/06/17 Pneumonia Refuses Surgical Hx Previous Surgery?Y FB REMOVAL FROM ESPOHAGUS L OVARY REMOVED Family History Family Hx Diabetes No CAD Yes Hypertension Yes Hyperlipidemia Yes Cancer No TB No Social History Smoking Hx Smoker: Former Smoker Tobacco: No Type Cigarettes Are you/the child exposed to second-hand smoke: No Alcohol Alcohol: No Drugs none Review of Systems All Other Systems Reviewed and Negative Constitutional see HPI, denies fever, weakness Eyes denies drainage ENT denies: ear pain, epistaxis, throat pain. Respiratory see HPI, denies cough, shortness of breath, denies wheezing Cardiovascular see HPI, denies chest pain, palpitations, denies syncope Gastrointestinal see HPI, abdominal pain, denies nausea, denies vomiting Genitourinary denies: dysuria, frequency, hesitancy, hematuria. Musculoskeletal denies back pain, denies joint pain, denies joint swelling, denies neck pain Skin denies rash Psychiatric/Neurological denies headache, denies seizure Physical Exam Vital Signs Vital Signs Date Time Temp Pulse Resp B/P Pulse O2 O2 Flow FiO2 Ox Delivery Rate 04/06 2239 19 04/06 2224 139 20 137/91 96 2 04/06 2133 101 20 126/82 95 2 04/06 1957 98.6 161 20 122/73 96 2 - WBC >12,000 or <4,000 or 10% bands? 2 or more SIRS Criteria Met? B/P:122/73 MAP:89 Creatinine >2.0? UA output<0.5ml/kg/hr for 2 hrs? Platelet count >100,000? Lactate >2.0mmol/1? INR >1.2 or PTT > than 60 sec? Evidence of Organ Dysfunction? Provider documented clinical suspician of infection? N Sepsis Criteria Count: 2 Sepsis Risk: Possible Sepsis Risk General Appearance no apparent distress Eye Exam - bilateral eye PERRL, bilateral eye EOMI Ear, Nose, Throat normal ENT inspection Neck supple Respiratory Status No: respiratory distress. Lung Sounds bilateral: decreased breath sounds. 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 No Results/Orders Laboratory Tests 04/06/172009: Sodium 146 H, Potassium 3.6, Chloride 107, Carbon Dioxide 27, BUN 22 H, Creatinine 0.7, Estimated Creat Clear 153, Estimated GFR (MDRD) 85, Glucose 156 H, Calcium 8.1 L, Total Bilirubin 0.9, AST 54 H, ALT 75, Alkaline Phosphatase 55, Creatine Kinase 246 H, CK-MB (CK-2) Rel Index 1.5, CK and CKMB Interp 3.8 H, Troponin I 0.03, Total Protein 6.9, Albumin 3.0 L, Globulin 3.9 H, Albumin/ Globulin Ratio 0.8 L, WBC 21.6 *H, RBC 3.93 L, Hgb 12.0 L, Hct 36.5 L, MCV 92.9, RDW 15.1, Plt Count 302, Gran % 74.2, Gran # 16.0 H, Total Counted 100, Lymphocytes % 21.1, Monocytes % 4.7, Neutrophils 83 H, Lymphocytes (Manual) 14, Lymphocytes # 4.6 H, Monocytes (Manual) 3, Monocytes # 1.0, Platelet Estimate NORMAL, Hypochromasia 1+, Anisocytosis 1+, PUBS MCHC 32.9, MCH 30.5, Digoxin 0.11 L Current Medication Orders Sig/Cha Start time Last Medication Dose Route Stop Time Status Admin Bisacodyl 0 .STK-MED ONE 04/06 2236 DC VA Promethazine HCl 0 .STK-MED ONE 04/06 2236 DC .ROUTE Ketorolac 0 .STK-MED ONE 04/06 2235 DC Tromethamine .ROUTE Sodium Chloride 25 ML .STK-MED ONE 04/06 2235 DC IV Digoxin 0 .STK-MED ONE 04/06 2234 DC .ROUTE Bisacodyl 10 MG ONCE ONE 04/06 2230 DC 04/06 VA 04/06 Digoxin 0.125 MG ONCE ONE 04/06 2230 DC 04/06 IV 10/02 2231 2240 Ketorolac 30 MG ONCE ONE 04/06 2230 DC 04/06 Tromethamine IV 04/06 2231 223 Promethazine HCl 12.5 MG ONCE ONE 04/06 2230 DC 04/06 IV 04/06 223 2237 Sodium Chloride 25 ML ONCE ONE 04/06 2230 DC 04/06 IV 04/06 2244 2238 Sodium Chloride 100 ML .STK-MED ONE 04/06 2048 DC IV Diltiazem HCl 0 .STK-MED ONE 04/06 2047 DC IV Diltiazem HCl 0 .STK-MED ONE 04/06 204 DC IV Diltiazem HCl 10 MG ONCE ONE 04/06 2045 DC 04/06 IV 04/06 2046 205 Diltiazem HCl 100 MG ONCE ONE 04/06 2045 AC 04/06 Sodium Chloride 100 ML IV 04/07 0644 205 Sodium Chloride 10 ML PRN PRN 04/06 2015 AC IV 04/07 2003 Orders Procedure Date/time Status Decision to admit 04/06 2241 Active DIGOXIN 04/06 2030 Complete DIFFERENTIAL-WBC 04/06 2010 Complete ELECTROCARDIOGRAM REQUEST 04/06 2003 Active CHEST-PORTABLE 04/06 2003 Active IV SALINE LOCK 04/06 2003 Active CBC WITH AUTO DIFF 04/06 2003 Complete CARDIAC ENZYMES 04/06 2003 Complete CHEM 12 PROFILE 04/06 2003 Complete 12 LEAD EKG-JAYSON (INITIAL) 04/06 194 Active 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 ST/Twave chgs XRAY/CT/US XRAY/CT/US XRAY chest XR interpretation by reviewed by me Xray Results normal/NAD (possible change lt base) Departure Departure Time of Disposition 2236 Disposition Still a Patient Clinical Impression Primary Impression: Atrial fibrillation with rapid ventricular response Secondary Impressions: Leukocytosis Qualifiers: Leukocytosis type: bandemia Qualified Code: D72.825 - Bandemia Condition STABLE Referrals Juan J Platt MD (Family) discussed with dr castillo and dr jhonatan NESS Critical Care Critical Care No at 2328
[2017-04-06 20:20] LABS: LYMPH # 4.6 K/mm3 (0.7-4.5); LYMPH % 21.1 % (10-50.0)
[2017-04-06 22:03] LABS: NEUTROPHILS 83 % (42-76)
[2017-04-07] VITALS (15 sets, daily range): BP systolic 113–148; BP diastolic 63–80
[2017-04-07 07:12] LABS: HEMOGLOBIN 11.8 g/dL (12.2-16.2); LYMPH % 18.3 % (10-50.0)
--- NOTE | 2017-04-07 07:31 | PHARMACY CLINIC NOTE ---
Patient Demographics Patient Demographics Admission date: 04/06/17 Date: 04/07/17 Time: 0730 Allergies Coded Allergies: No Known Drug Allergies (-- 04/01/17) HEIGHT- FT: 5 IN: 7.00 K.298 VTE General Information Labs: Laboratory Tests 04/07 Hematology Hgb (12.2 - 16.2 g/dL) 11.8 L 12.0 L Hct (37.0 - 47.0 %) 36.9 L 36.5 L Plt Count (142 - 424 K/mm3) 298 302 Disclaimer The following section includes nursing documentation that has been pulled in for pharmacy review. Patient's VTE score: 4 Patient's VTE Risk: LOW RISK Clinical trial participant? No VTE prophylaxis NQF [id number] VTE prophylaxis ordered? Yes Type of prophylaxis/treatment: DREW at 0730
--- NOTE | 2017-04-07 07:57 | RADIOLOGY REPORT PS360 ---
CHEST-PORTABLE COMPARISON: CT angiogram of chest 04/03/2017 HISTORY: Shortness of breath TECHNIQUE: Portable upright chest FINDINGS: The lung connor are well expanded. There is minimal discoid atelectasis at the left base. There is slight lateral elevation of the right hemidiaphragm probably due to a small subpulmonic pleural effusion. There is no definite pneumonic infiltrate. Cardiac size is normal and the vascularity is normal. There are multilevel degenerative changes of the thoracic spine. IMPRESSION: Probable small right pleural effusion and left basilar atelectasis
--- NOTE | 2017-04-07 08:55 | CONSULT NOTE ---
Standard Demographics Patient Demo Date of Consultation: 04/07/17 Referring Provider: Juan J Platt MD Reason for Consultation: A. fib with RVR PRIMARY DIAGNOSIS: AFIB WITH RVR Problem list Problem list: 1. History of tobacco use, one half to one pack per day, greater than 40 years. 2. Asthma 3. Family history of coronary disease in her father in his mid 60s with an myocardial infarction 4. Chronic back pain 5. Recent RIGHT hip surgery in June 2016 6. Hypothyroidism, on replacement therapy 7. Recent hysterectomy with need for reoperation due to bleeding, 03/2017 History of present illness: History of present illness: 61-year-old white female with recent laparoscopic hysterectomy after which patient had recurrent bleeding requiring recurrent surgical intervention. Patient developed postop atrial fibrillation that converted with IV diltiazem. CT of the chest at that time was negative for pulmonary embolus. Echocardiogram showed ejection fraction of 55-60 percent without significant valve disease. She did have some mild RIGHT heart enlargement. Patient does have a history of asthma and previous smoking history with intermittent use of her inhalers. Patient was discharged home yesterday on diltiazem. Reportedly went back into atrial fibrillation as she was leaving but did not notify anyone. At home she progressively declined and decided to come back in for evaluation. Atrial fibrillation converted again on IV diltiazem. Cardiology consulted for evaluation and recommendations. Troponins have been normal over the last several days. Electrocardiograms show initially atrial fibrillation with a rapid ventricular response with ST-T abnormalities consistent with dig effect. The patient does relate several months history of exertional shortness of breath and intermittent palpitations that may last up to 30 minutes at a time. When she does have the episodes of palpitations she states she feels discomfort into her neck that resolves when the rapid heart rate resolves. She denies any previous cardiac history. Past Medical History: General: Hypertension No CVA No Seizures No TB No COPD Yes Asthma Yes Diabetes No Angina No [place] No Hyperlipidemia No Urinary No Cancer No Rheumatic H.D. No Ulcers No MRSA No GB Disease No Past Surgical HX: Previous Surgery?Y FB REMOVAL FROM ESPOHAGUS L OVARY REMOVED Allergies Coded Allergies: No Known Drug Allergies (-- 04/01/17) Home medications: Active Scripts Apixaban (Eliquis) 5 MG PO BID #60 TAB Ref 2 Prov: 04/06/17 Digoxin (Digox) 0.125 MG PO DAILY-DM #30 TAB Ref 2 Prov: 04/06/17 DILTIAZEM HCL (Diltiazem 24HR Cd) 240 MG PO DAILY #30 C24 Ref 3 Prov: 04/06/17 Levalbuterol Tartrate (Xopenex HFA INH) 1-2 PUFF IH Q6HP PRN WHEEZING #1 INH Ref 3 Prov: 04/06/17 FLUTICASONE PROP (Flovent Hfa 220MCG) 2 PUFF IH BID #1 INH Ref 2 Prov: 04/06/17 Reported Medications Levothyroxine Sodium (Levothyroxine) 0.05 MG PO DAILY Current Medications: Current Medications Ampicillin/Sulbactam/Sodium Chlorid 3 GM Q6 IV Sodium Chloride 100 ML Diltiazem HCl 240 MG DAILY PO Levothyroxine Sodium 0.05 MG DAILY PO Patient Own Medication 1 UNIT BID PO Digoxin 0 .STK-MED ONE .ROUTE (DC) Sodium Chloride 10 ML PRN PRN IV Digoxin 0.125 MG DAILY-DM PO Sodium Chloride 100 ML .STK-MED ONE IV (DC) Ampicillin Sodium/Sulbactam Sodium 0 .STK-MED ONE IV (DC) Sodium Chloride 100 ML .STK-MED ONE IV (DC) Diltiazem HCl 0 .STK-MED ONE IV (DC) Levalbuterol HCl 1.25 MG Q6H6 INH Sodium Chloride 10 ML PRN PRN IV Acetaminophen 650 MG Q4HP PRN PO Ampicillin/Sulbactam/Sodium Chlorid 3 GM Q6H IV (DC) Sodium Chloride 100 ML Diltiazem HCl 100 MG .Q10H IV Sodium Chloride 100 ML Morphine Sulfate 2 MG Q4HP PRN IV Ondansetron HCl 4 MG Q6HP PRN IV Sodium Chloride 1,000 ML .[id number] IV Sodium Chloride 100 ML .STK-MED ONE IV (DC) Sodium Chloride 100 ML .STK-MED ONE IV (DC) Ampicillin Sodium/Sulbactam Sodium 0 .STK-MED ONE IV (DC) Ampicillin/Sulbactam/Sodium Chlorid 3 GM ONCE ONE IV (DC) Sodium Chloride 100 ML Bisacodyl 0 .STK-MED ONE IL (DC) Promethazine HCl 0 .STK-MED ONE .ROUTE (DC) Ketorolac Tromethamine 0 .STK-MED ONE .ROUTE (DC) Sodium Chloride 25 ML .STK-MED ONE IV (DC) Digoxin 0 .STK-MED ONE .ROUTE (DC) Bisacodyl 10 MG ONCE ONE IL (DC) Digoxin 0.125 MG ONCE ONE IV (DC) Ketorolac Tromethamine 30 MG ONCE ONE IV (DC) Promethazine HCl 12.5 MG ONCE ONE IV (DC) Sodium Chloride 25 ML ONCE ONE IV (DC) Sodium Chloride 100 ML .STK-MED ONE IV (DC) Diltiazem HCl 0 .STK-MED ONE IV (DC) Diltiazem HCl 0 .STK-MED ONE IV (DC) Diltiazem HCl 10 MG ONCE ONE IV (DC) Diltiazem HCl 100 MG ONCE ONE IV (DC) Sodium Chloride 100 ML Sodium Chloride 10 ML PRN PRN IV Immunization HX DT/Tetanus > 10 YRS Flu 04/06/17 Pneumonia Refuses TB Test in last year No Family history Family HX Family Hx Insignificant No Diabetes No CAD Yes Hypertension Yes Hyperlipidemia Yes Cancer No TB No Social Hx: Smoking HX Tobacco No Type Cigarettes Packs/day N/A Are you/the child exposed to second-hand smoke: No Alcohol Alcohol: No Hx of Drug Use Drug Use? No Review of systems: Constitutional weakness. Respiratory SOB with excertion. Cardiovascular No no symptoms reported Gastrointestinal/Abdominal No no symptoms reported Genitourinary No: no symptoms reported. Musculoskeletal back pain, joint pain. Neurological No: no symptoms reported. Exam: Admission Vital Signs: 1ST Vital Signs Result Date Time Pulse Ox 96 04/06 1957 B/P 122/73 04/06 1957 O2 Flow Rate 2 04/06 1957 Temp 98.6 04/06 1957 Pulse 161 04/06 1957 Resp 20 04/06 1957 O2 Delivery ROOM AIR 04/07 109 Last Vital Signs: Vital Signs Result Date Time Pulse Ox 95 04/07 808 B/P 121/73 04/07 808 Temp 97.9 04/07 808 Pulse 70 04/07 808 Resp 18 04/07 808 O2 Delivery OXYGEN 04/07 07 O2 Flow Rate 2 04/07 0700 Exam General appearance: alert, awake, no acute distress Neck: no carotid bruit, no JVD Cardiovascular: regular rate & rhythm, no murmur Respiratory: clear to auscultation, good air movement ABD: soft Extremities: moves all, no peripheral edema Neuro: alert, intact, oriented Laboratory data: Laboratory Tests 04/07/17604: Troponin I 0.04 04/07/17604: Sodium 138, Potassium 3.7, Chloride 100, Carbon Dioxide 31, BUN 21 H, Creatinine 0.7, Estimated Creat Clear 150, Estimated GFR (MDRD) 85, Glucose 141 H, Calcium 7.7 L, WBC 16.5 H, RBC 3.97 L, Hgb 11.8 L, Hct 36.9 L, MCV 93.0, RDW 16.0, Plt Count 298, Gran % 77.5, Gran # 12.8 H, Lymphocytes % 18.3, Monocytes % 4.2, Lymphocytes # 3.0, Monocytes # 0.7, PUBS MCHC 32.0, MCH 29.7 04/06/172009: Sodium 146 H, Potassium 3.6, Chloride 107, Carbon Dioxide 27, BUN 22 H, Creatinine 0.7, Estimated Creat Clear 153, Estimated GFR (MDRD) 85, Glucose 156 H, Calcium 8.1 L, Total Bilirubin 0.9, AST 54 H, ALT 75, Alkaline Phosphatase 55, Creatine Kinase 246 H, CK-MB (CK-2) Rel Index 1.5, CK and CKMB Interp 3.8 H, Troponin I 0.03, Total Protein 6.9, Albumin 3.0 L, Globulin 3.9 H, Albumin/ Globulin Ratio 0.8 L, WBC 21.6 *H, RBC 3.93 L, Hgb 12.0 L, Hct 36.5 L, MCV 92.9, RDW 15.1, Plt Count 302, Gran % 74.2, Gran # 16.0 H, Total Counted 100, Lymphocytes % 21.1, Monocytes % 4.7, Neutrophils 83 H, Lymphocytes (Manual) 14, Lymphocytes # 4.6 H, Monocytes (Manual) 3, Monocytes # 1.0, Platelet Estimate NORMAL, Hypochromasia 1+, Anisocytosis 1+, PUBS MCHC 32.9, MCH 30.5, Digoxin 0.11 L Plan: Assessment: 1. Recurrent atrial fibrillation with rapid ventricular response. Now converted to sinus rhythm with IV diltiazem. Recommend continuing diltiazem 240 mg daily and digoxin 0.125 mg daily we'll obtain a Lexiscan Myoview to evaluate for coronary artery disease. If no evidence of ischemia then we'll consider antiarrhythmic therapy in the form of sotalol. 2. Dyspnea on exertion with neck discomfort 3. Mild anemia 4. Chronic obstructive pulmonary disease/asthma 5. Ex-smoker 6. Hypothyroidism 7. Recent hysterectomy and reoperation due to bleeding. Recommendations: Discussed with Dr. Olivares. See above. at 0908
--- NOTE | 2017-04-07 09:24 | HISTORY AND PHYSICAL REPORT ---
Demographics: Admit date: 04/07/17 Chief complaint: palpitations, shortness of breath PRIMARY DIAGNOSIS: AFIB WITH RVR Allergies: Coded Allergies: No Known Drug Allergies (-- 04/01/17) History of present illness: History of present illness: 61-year-old white female with recent laparoscopic hysterectomy after which patient had recurrent bleeding requiring recurrent surgical intervention. Patient developed postop atrial fibrillation that converted with IV diltiazem. CT of the chest at that time was negative for pulmonary embolus. Echocardiogram showed ejection fraction of 55-60 percent without significant valve disease. She did have some mild RIGHT heart enlargement. Patient does have a history of asthma and previous smoking history with intermittent use of her inhalers. Patient was discharged home yesterday on diltiazem. Reportedly went back into atrial fibrillation as she was leaving but did not notify anyone. At home she progressively declined and decided to come back in for evaluation. Atrial fibrillation converted again on IV diltiazem. Cardiology consulted for evaluation and recommendations. Troponins have been normal over the last several days. Electrocardiograms show initially atrial fibrillation with a rapid ventricular response with ST-T abnormalities consistent with dig effect. The patient does relate several months history of exertional shortness of breath and intermittent palpitations that may last up to 30 minutes at a time. When she does have the episodes of palpitations she states she feels discomfort into her neck that resolves when the rapid heart rate resolves. She denies any previous cardiac history. Above per MICHELLE Sparrow. Past medical history: Family HX Diabetes No CAD Yes Hypertension Yes Hyperlipidemia Yes Cancer No TB No Immunization HX DT/Tetanus > 10 YRS Flu 04/06/17 Pneumonia Refuses TB Test in last year No General Angina: No [place]: No Hypertension? No Hyperlipidemia? No CHF? No COPD? Yes Asthma? Yes Hernia? No CVA? No Seizures? No Diabetes? No UTI? No Stones? No GB Disease: No Hepatitis? No Cataracts? No Glaucoma? No MRSA? No TB? No Cancer? No Past Surgical HX Previous Surgery?Y FB REMOVAL FROM ESPOHAGUS L OVARY REMOVED Current home meds: Active Scripts Apixaban (Eliquis) 5 MG PO BID #60 TAB Ref 2 Prov: 04/06/17 Digoxin (Digox) 0.125 MG PO DAILY-DM #30 TAB Ref 2 Prov: 04/06/17 DILTIAZEM HCL (Diltiazem 24HR Cd) 240 MG PO DAILY #30 C24 Ref 3 Prov: 04/06/17 Levalbuterol Tartrate (Xopenex HFA INH) 1-2 PUFF IH Q6HP PRN WHEEZING #1 INH Ref 3 Prov: 04/06/17 FLUTICASONE PROP (Flovent Hfa 220MCG) 2 PUFF IH BID #1 INH Ref 2 Prov: 04/06/17 Reported Medications Levothyroxine Sodium (Levothyroxine) 0.05 MG PO DAILY Social Hx: Smoking HX Tobacco No Type Cigarettes Packs/day N/A Are you/the child exposed to second-hand smoke: No Alcohol Alcohol: No Hx of Drug Use Drug Use? No Patient's support system is good Review of systems: Constitutional No: no symptoms reported. Eyes No: no symptoms reported. Ears, Nose, Mouth, Throat No no symptoms reported Respiratory No: no symptoms reported. Cardiovascular see HPI Gastrointestinal/Abdominal abdominal pain, constipated Genitourinary No: no symptoms reported. Musculoskeletal No: no symptoms reported. Skin No: no symptoms reported. Neurological No: no symptoms reported. Psychiatric No: no symptoms reported. Exam: Lab data for last 24 hours: Laboratory Tests 04/07/17 0605: Troponin I 0.04 04/07/17 0605: Sodium 138, Potassium 3.7, Chloride 100, Carbon Dioxide 31, BUN 21 H, Creatinine 0.7, Estimated Creat Clear 150, Estimated GFR (MDRD) 85, Glucose 141 H, Calcium 7.7 L, WBC 16.5 H, RBC 3.97 L, Hgb 11.8 L, Hct 36.9 L, MCV 93.0, RDW 16.0, Plt Count 298, Gran % 77.5, Gran # 12.8 H, Lymphocytes % 18.3, Monocytes % 4.2, Lymphocytes # 3.0, Monocytes # 0.7, PUBS MCHC 32.0, MCH 29.7 04/06/172009: Sodium 146 H, Potassium 3.6, Chloride 107, Carbon Dioxide 27, BUN 22 H, Creatinine 0.7, Estimated Creat Clear 153, Estimated GFR (MDRD) 85, Glucose 156 H, Calcium 8.1 L, Total Bilirubin 0.9, AST 54 H, ALT 75, Alkaline Phosphatase 55, Creatine Kinase 246 H, CK-MB (CK-2) Rel Index 1.5, CK and CKMB Interp 3.8 H, Troponin I 0.03, Total Protein 6.9, Albumin 3.0 L, Globulin 3.9 H, Albumin/ Globulin Ratio 0.8 L, WBC 21.6 *H, RBC 3.93 L, Hgb 12.0 L, Hct 36.5 L, MCV 92.9, RDW 15.1, Plt Count 302, Gran % 74.2, Gran # 16.0 H, Total Counted 100, Lymphocytes % 21.1, Monocytes % 4.7, Neutrophils 83 H, Lymphocytes (Manual) 14, Lymphocytes # 4.6 H, Monocytes (Manual) 3, Monocytes # 1.0, Platelet Estimate NORMAL, Hypochromasia 1+, Anisocytosis 1+, PUBS MCHC 32.9, MCH 30.5, Digoxin 0.11 L Admission vital signs: 1ST Vital Signs Result Date Time Pulse Ox 96 04/06 1957 B/P 122/73 04/06 1957 O2 Flow Rate 2 04/06 1957 Temp 98.6 04/06 1957 Pulse 161 04/06 1957 Resp 20 04/06 1957 O2 Delivery ROOM AIR 04/07 010 Exam General appearance: normal appearance, alert, active, awake Eyes: anicteric ENT: mucous membranes moist Neck: non-tender, no carotid bruit, no JVD, full range of motion Cardiovascular: normal sinus rhythm, regular rate & rhythm, no murmur, normal peripheral pulses Respiratory: clear to auscultation, chest non-tender, good air movement ABD: non-distended, normal bowel sounds, no rebound, soft, no tenderness, no guarding Genitourinary: no dysuria, no hematuria Extremities: moves all Musculoskeletal: equal muscle strength, sensation intact Skin: dry, normal color Neuro: alert, intact, no deficit, normal mood/affect, oriented, speech clear Plan: Problem List 1. Atrial fibrillation with rapid ventricular response 2. Complex endometrial hyperplasia with atypia 3. Postoperative hemorrhage involving genitourinary system following non- genitourinary procedure Plan: Patient converted to NSR on Cardizem gtt earlier this morning. Cardiology was consulted for evaluation. Cardizem infusion was discontinued and oral cardizem and digoxin were restarted. Plan for Lexascan Stress test today. at [phone]
--- NOTE | 2017-04-07 14:42 | RADIOLOGY REPORT PS360 ---
CARDIOLITE SPECT MYOCARDIAL PERFUSION SCAN, REST AND STRESS: EXERCISE STRESS [facility] REVIEW QGS EF AND WALL MOTION EVALUATION: QPS - PERFUSION EVALUATION HISTORY: A-FIB, NECK DISCOMFORT DOSE: 10.81 mCi technetium 99m mibi intravenously at rest followed by 31.5 mCi technetium 99m mibi following the intravenous ministration of 0.4 mg of Lexiscan. Resting blood pressure is 126/65 Stress blood pressure 112/54. FINDINGS: Ejection fraction is calculated to 80% Uniform myocardial activity with both stress and rest gated images calculated ejection fraction of 80% with normal wall motion IMPRESSION: No scintigraphic evidence of Lexiscan-induced myocardial ischemia. Normal ejection fraction normal wall motion
--- NOTE | 2017-04-07 14:42 | RADIOLOGY REPORT PS360 ---
CARDIOLITE SPECT MYOCARDIAL PERFUSION SCAN, REST AND STRESS: EXERCISE STRESS TUALITY [facility] REVIEW QGS EF AND WALL MOTION EVALUATION: QPS - PERFUSION EVALUATION HISTORY: A-FIB, NECK DISCOMFORT DOSE: 10.81 mCi technetium 99m mibi intravenously at rest followed by 31.5 mCi technetium 99m mibi following the intravenous ministration of 0.4 mg of Lexiscan. Resting blood pressure is 126/65 Stress blood pressure 112/54. FINDINGS: Ejection fraction is calculated to 80% Uniform myocardial activity with both stress and rest gated images calculated ejection fraction of 80% with normal wall motion IMPRESSION: No scintigraphic evidence of Lexiscan-induced myocardial ischemia. Normal ejection fraction normal wall motion
[2017-04-08] VITALS (8 sets, daily range): BP systolic 121–147; BP diastolic 60–99
--- NOTE | 2017-04-08 07:30 | ACUTE CARE PROGRESS NOTE (QUA) ---
Progress Notes Subjective Date 04/08/17 Time 0728 Note Patient feels well except for complaints of constipation and fatigue but the fatigue symptoms have improved. Heart rate regular. Sinus rhythm on the monitors. Patient is alert and awake. No peripheral edema. Objective Findings Last VS-Temp:98.7 B/P:130/71 Pulse:72 Resp:16 SaO2:93 OXYGEN Last weight lbs:254 oz:3 K.298 Method:Bed Scales Assessment/Plan Problem List 1. Atrial fibrillation with rapid ventricular response 2. Complex endometrial hyperplasia with atypia 3. Postoperative hemorrhage involving genitourinary system following non- genitourinary procedure Patient condition Improving Plan: continue current care, cardiology note reviewed and appreciated. Myoview scan yesterday was normal. Sotalol started today with close telemetry and daily electrocardiogram monitoring. Dulcolax for constipation problems. Continue current therapy for asthma issues. This inpt stay is expected to cross 2 MNs from start of care Yes at 0790
--- NOTE | 2017-04-08 11:02 | ACUTE CARE PROGRESS NOTE (QUA) ---
Progress Notes Subjective Date 04/08/17 Time 1100 Note 61 yo WF in bedside chair in NAD. No palpitations. Still fatigued Objective Findings Last VS-Temp:98.2 B/P:147/70 Pulse:75 Resp:22 SaO2:95 ROOM AIR Last weight lbs:254 oz:3 K.298 Method:Bed Scales Exam General appearance: alert, awake, no acute distress Cardiovascular: regular rate & rhythm Respiratory: clear to auscultation Reviewed: medications, vital signs, lab results Assessment/Plan Problem List 1. Atrial fibrillation with rapid ventricular response Assessment/Plan: Kush myoview without ischemia and with normal LVEF. Sotalol started today. EKG is sinus with QTc of 408 ms. 2. Complex endometrial hyperplasia with atypia 3. Postoperative hemorrhage involving genitourinary system following non- genitourinary procedure Patient condition Stable Plan: continue current care, check ekg in AM. This inpt stay is expected to cross 2 MNs from start of care Yes at 1101
[2017-04-09 04:12] VITALS: BP 136/74
[2017-04-09 06:55] LABS: LYMPH % 13.5 % (10-50.0)
[2017-04-09 07:12] LABS: HEMOGLOBIN 10.9 g/dL (12.2-16.2)
--- NOTE | 2017-04-09 07:43 | ACUTE CARE PROGRESS NOTE (QUA) ---
Progress Notes Subjective Date 04/09/17 Time 0739 Note 61 yo WF in bedside chair in NAD. States she feels much better and is ready to go home. Telemetry review shows no A. fib overnight. Objective Findings Last VS-Temp:97.6 B/P:136/74 Pulse:63 Resp:18 SaO2:95 ROOM AIR Last weight lbs:254 oz:3 K.299 Method:Bed Scales Exam General appearance: alert, awake, no acute distress Cardiovascular: regular rate & rhythm Respiratory: clear to auscultation Reviewed: medications, vital signs, lab results Assessment/Plan Problem List 1. Atrial fibrillation with rapid ventricular response Assessment/Plan: Maintaining NSR on sotalol and diltiazem. Will stop digoxin. Continue Eliquis. 2. Complex endometrial hyperplasia with atypia 3. Postoperative hemorrhage involving genitourinary system following non- genitourinary procedure Patient condition Stable Plan: OK for discharge from cardiology standpoint if EKG this AM shows stable QTc . Follow up in one week. This inpt stay is expected to cross 2 MNs from start of care Yes at 0761
[2017-04-09 07:45] VITALS: BP 123/59
--- NOTE | 2017-04-09 07:58 | DISCHARGE SUMMARY STANDARD ---
Demographics Admit date: 04/07/17 Discharge date: 04/09/17 History of present illness History of present illness 61-year-old white female with recent laparoscopic hysterectomy after which patient had recurrent bleeding requiring recurrent surgical intervention. Patient developed postop atrial fibrillation that converted with IV diltiazem. CT of the chest at that time was negative for pulmonary embolus. Echocardiogram showed ejection fraction of 55-60 percent without significant valve disease. She did have some mild RIGHT heart enlargement. Patient does have a history of asthma and previous smoking history with intermittent use of her inhalers. Patient was discharged home yesterday on diltiazem. Reportedly went back into atrial fibrillation as she was leaving but did not notify anyone. At home she progressively declined and decided to come back in for evaluation. Atrial fibrillation converted again on IV diltiazem. Cardiology consulted for evaluation and recommendations. Troponins have been normal over the last several days. Electrocardiograms show initially atrial fibrillation with a rapid ventricular response with ST-T abnormalities consistent with dig effect. The patient does relate several months history of exertional shortness of breath and intermittent palpitations that may last up to 30 minutes at a time. When she does have the episodes of palpitations she states she feels discomfort into her neck that resolves when the rapid heart rate resolves. She denies any previous cardiac history. Hospital Course Hospital Course: Patient was admitted, rapid atrial fibrillation was confirmed. Responded to intravenous diltiazem. Myoview stress testing was done which revealed no evidence of perfusion deficits and sotalol was started with careful monitoring of QT interval's and bradycardia aspects, of which none were noted. Patient did well over the next couple of days. This morning she has regular heart rate, lungs are clear, abdomen soft. She'll be discharged home with sotalol, diltiazem, anticoagulation with NOAC agent, pain medication with Toradol for postoperative pain, follow-up next week with me for electrocardiogram monitoring, cardiology and gynecology as scheduled. She will also need Xopenex nebulizer treatments because of atrial fibrillation issues. Discharge diagnoses Problem List 1. Atrial fibrillation with rapid ventricular response 2. Complex endometrial hyperplasia with atypia 3. Postoperative hemorrhage involving genitourinary system following non- genitourinary procedure 4. Asthma Medications Medications: Discharge meds are as noted. Follow up Follow up in office in: 5 DAYS with: Juan J Platt MD at 4160
[2017-04-09] MEDS ORDERED: BETAPACE 80MG T80 MG PO (08:06)
[2017-04-09] MEDS ORDERED: XOPENEX1.25 MG/3 INH (08:08)
[2017-04-09] MEDS ORDERED: AEROSOL THERAPY1 DEV XX (08:08)
[2017-04-09] MEDS ORDERED: TORADOL10 MG PO (08:18)
[2017-04-09 11:54] VITALS: BP 105/65
[2017-04-09 13:05] VITALS: BP 105/65
--- OUTSIDE RECORDS SUMMARY | 2017-04-16 05:33 | External Medical Summary Rpt | CCD ---
Author Author [employer] Organization [employer] Address Unknown Phone Unavailable Purpose Continuity of Care Document - through 2016
--- OUTSIDE RECORDS SUMMARY | 2017-04-16 05:33 | External Medical Summary Rpt | CCD ---
Demographics Preferred Language Persian Marital Status Unknown Advent Affiliation Unknown Race Unknown Ethnic Group Unknown Author Author , MARJORIE AMADOR Address Unknown Phone Immunization No patient found.
--- OUTSIDE RECORDS SUMMARY | 2017-04-16 05:33 | External Medical Summary Rpt | CCD ---
Demographics Preferred Language Sami Marital Status Unknown Yarsanism Affiliation Unknown Race Unknown Ethnic Group Unknown Author Author , MARJORIE AMADOR Address Unknown Phone Immunization No patient found.
--- OUTSIDE RECORDS SUMMARY | 2017-04-16 05:44 | External Medical Summary Rpt | CCD ---
Demographics Preferred Language Thai Marital Status Unknown Gnosticism Affiliation Unknown Race Unknown Ethnic Group Unknown Author Author , MARJORIE AMADOR Address Unknown Phone Immunization No patient found.
--- OUTSIDE RECORDS SUMMARY | 2017-04-16 05:44 | External Medical Summary Rpt | CCD ---
Demographics Preferred Language Macedonian Marital Status Unknown Zoroastrianism Affiliation Unknown Race Unknown Ethnic Group Unknown Author Author , MARJORIE AMADOR Address Unknown Phone Immunization No patient found.
[2017-04-17] MEDS ORDERED: DIGOX0.125 MG PO (07:44)
[2017-04-21] MEDS ORDERED: PROTONIX40 MG PO (07:24)
[2017-04-21] MEDS ORDERED: CARAFATE 1GM TAB1 GM PO (07:25)
== END 2017-04-09 13:05 | disposition home or self-care (01) | DRG 310 ==
LOC: ER 19:55 → 2ND 22:41 → ER 22:41 → 2ND 22:42
PROVIDERS: Emergency Medicine; Internal Medicine Adolescent Medicine
DX: I48.91 Unspecified atrial fibrillation (principal); J44.9 Chronic obstructive pulmonary disease, unspecified
CPT/HCPCS: A9502; J2785

== ENCOUNTER → 2017-05-13 | Outpatient (CLI) | payer OTHER ==
[~2017-05-13] MED LIST changes: +AEROSOL THERAPY1 DEV XX; +BETAPACE 80MG T80 MG PO; +CARAFATE 1GM TAB1 GM PO; +PROTONIX40 MG PO; +TORADOL10 MG PO; +XOPENEX1.25 MG/3 INH
== END ==
LOC: LAB 16:13
DX: T81.89XA Other complications of procedures, not elsewhere classified, initial encounter (principal)